=== PATIENT | female | born 1955 | race African-American/Black ===

== ENCOUNTER 2020-05-20 15:43 | Inpatient (IN) | payer MEDICARE ==
[~2020-05-20 15:43] MED LIST: Iopamidol-370 76% 500 ML 1 ML ONE
[2020-05-20 16:10] LABS: #Basophils 0.1 thou/uL (0.0-0.2); #Eosinphils 0.1 thou/uL (0.0-0.7); #Lymphocytes 3.5 thou/uL (1.20-3.40); #Monocytes 0.6 thou/uL (0.11-0.59); #Neutrophils 3.8 thou/uL (1.40-6.50); %Basophils 1.3 % (0.0-1.0); %Lymphocytes 42.9 % (21.0-51.0); %Monocytes 7.9 % (0.0-10.0); %Neutrophils 46.9 % (42.0-75.0); Hemoglobin 16.1 g/dL (12.0-16.0); Mean Corpuscular HGB CONC 33.9 g/dL (32.0-36.0); Mean Corpuscular Hemoglobin 29.7 pg (27.0-31.0); Mean Corpuscular Volume 87.4 fL (78.0-98.0); Mean Platelet Volume 7.4 fL (7.4-10.4); Platelet Count 238 thou/uL (130-400); RBC Distribution Width 13.4 % (11.5-14.5); Red Blood Cell (RBC) Count 5.41 mill/uL (4.20-5.40)
[2020-05-20 16:35] LABS: ALT (SGPT) 11 U/L (8-55); AST (SGOT) 17 U/L (5-34); Alkaline Phosphatase 109 U/L (40-110); Anion Gap 21 mmol/L (10-20); BUN (Urea Nitrogen) 8 mg/dL (9.8-20.1); Bilirubin, Total 0.9 mg/dL (0.2-1.2); Calc. Creatinine Clearance 0 mL/min (70-130); Calcium 9.6 mg/dL (7.8-10.44); Carbon Dioxide 19 mmol/L (23-31); Chloride 100 mmol/L (98-107); Estimated GFR-MDRD 79; Globulin 4.4 g/dL (2.4-3.5); Glucose 200 mg/dL (80-115); Lipase 23 U/L (8-78); Potassium 4.7 mmol/L (3.5-5.1); Protein, Total 8.4 g/dL (6.0-8.3); Sodium 135 mmol/L (136-145)
[2020-05-20 17:12] LABS: Bilirubin Negative (Negative); Blood, Urine Negative (Negative); Calcium Oxalate Crystals 1+ HPF (None Seen); Clarity Turbid (Clear); Glucose, Urine (Dipstick) Normal (Negative); Ketone, Urine 40 mg/dL (Negative); Leukocyte 500 Leu/uL (Negative); Nitrite Negative (Negative); Protein, Urine (Dipstick) 50 mg/dL (Neg-Trace); Specific Gravity, Urine 1.026 (1.002-1.036); Squamous Epithelial 21-50 HPF (0-3); Urobilinogen Normal mg/dL (Less than 2)
[2020-05-20 17:20] LABS: Bacteria/HPF 4+ HPF (None Seen)
[2020-05-20 17:21] LABS: Mucous/LPF 2+ LPF (<2+); Yeast-Hyphae 1+ HPF (None Seen)
[2020-05-20] MEDS ORDERED: cefTRIAXone\\ROCEPHIN 2 GM VIAL ONE (17:51)
--- NOTE | 2020-05-20 18:17 | CT ---
CT CHEST, ABDOMEN AND PELVIS WITH IV CONTRAST: 05/20/20 HISTORY: Chest pain, abdominal pain, progressive onset of dysphagia. GE reflux. COMPARISON: None. FINDINGS: No evidence of mediastinal, hilar, axillary mass or lymphadenopathy seen. Multiple low density lesion s are seen in the thyroid gland. No pleural or pericardial effusions are noted. No pneumothoraces, fo brenda areas of consolidation, or lung masses are identified. There is a peripheral solid 5 mm lung nodu le in the right lower lobe. The liver, spleen, pancreas, adrenal glands and right kidney appear normal. There is a 2 cm cyst in t he inferior pole of the left kidney. No calcified gallstones are seen. There is a 1 cm lymph node in the superior gastrohepatic ligament. There is prominence of the stomach. No free air, free fluid or r etroperitoneal lymphadenopathy seen. The small bowel loops are not abnormally dilated. A normal appea ring appendix is present. The uterus is present. There are vascular calcifications without evidence of aneurysmal dilatation of the thoraco-abdominal aorta. There are degenerative changes in the thoracolumbar spine. No osteolyti c or osteoblastic lesions are seen. IMPRESSION: 1. Indeterminate 5 mm right lower lobe lung nodules. A follow-up CT scan of the chest is recomme nded in six months. 2. 1 cm lymph node in the gastrohepatic ligament. 3. Prominence of the gastric wall. Endoscopy would be helpful. 4. Left renal cyst. 5. Low dense lesions in the thyroid gland should be evaluated with ultrasound. POS: OFF
--- NOTE | 2020-05-20 19:03 | PDOC.HHP ---
Hospitalist HPI - History of Present Illness Dysphagia History of Present Illness: This is a 64-year-old female patient with a history of dysphagia currently being followed by Dr. Sanderson, diabetes mellitus, hyperthyroidism on methimazole, hypertension who presents with progressive dysphagia for liquids than solids, increasing weakness and nausea for the last few days. She notes having had the symptoms for the past several months and had a telemedicine visit with Dr. Sanderson a few days ago. She notes she was going to do an EDG and colonoscopy however her symptoms worsened with increasing nausea and epigastric painleading her to come to the ED for further evaluation. Epigastric pain is burning in nature 5/10 intensity nonradiating. She feels a sensation of food and liquid stuck in her throat however it is worse with solid food. She has noted a 15 pound weight loss over the past 3 months. This she attributes to reduced ability to eat. She denies any diarrhea but however has constipation. She denies any dysuria frequency or hematuria. She notes a history of dyspepsia spanning from her teenage days. Also notes hypothyroidism for which she been on methimazole and initial managed by endoc rinology however now is managed by her PCP At presentation her vitals showed BP 119/80, pulse 117, respiratory rate 20, temperature 97.9 and saturating at 97 on room air. UA showed increased ketones, moderate white blood cells, 4+ bacteria, sodium was 135, bicarb 19, glucose 200, hemoglobin 16.1, no leukocytosis. TSH was 14.5, troponin was 0.01. CT of head chest abdomen pelvis revealed indeterminate 5 mm right lower lobe lung nodule, 1 cm lymph node in the gastrohepatic ligament, prominence of the gastric wall with recommended endoscopy to evaluate. Left renal cyst and low-density lesions in the thyroid gland. In the ED she was given ceftriaxone to cover for UTI and 1 L normal saline. Hospitalist team consulted for admission. Hospitalist ROS - Review of Systems Constitutional: denies: fever, chills, sweats Cardiovascular: denies: chest pain, palpitations, orthopnea, paroxysmal noc. dyspnea Gastrointestinal: reports: nausea, abdominal pain, constipation, hematochezia. denies: vomiting, diarrhea, melena Genitourinary: denies: dysuria, frequency, incontinence Neurological: denies: weakness, numbness, incoordination Hospitalist History - Past Medical History Cardiac: reports: HTN Endocrine: reports: Diabetes, Hyperthyroidism - Past Surgical History Other Surgical History: Cataract surgery bilateral - Family History Family History: reports: diabetes mellitus, hypertension - Social History Smoking Status: Never smoker Alcohol: reports: None Living Situation: With Family Activity level: independent ambulation - Exam General Appearance: awake alert Eye: PERRL, anicteric sclera Heart: RRR, no murmur, no gallops, no rubs, normal peripheral pulses Respiratory: no wheezes, no rales, no ronchi, no tachypnea Gastrointestinal: soft, non-distended, normal bowel sounds, tender to palpation (Epigastric. No rebound tenderness or guarding) Extremities: no cyanosis, no clubbing, no edema Hospitalist Results - Labs Result Diagrams: 05/20/20 16:00 05/21/20 13:17 Lab results: WBC 8.0 thou/uL (4.8-10.8) 05/20/20 16:00 Hgb 16.1 g/dL (12.0-16.0) H 05/20/20 16:00 Hct 47.3 % (36.0-47.0) H 05/20/20 16:00 MCV 87.4 fL (78.0-98.0) 05/20/20 16:00 Plt Count 238 thou/uL (130-400) 05/20/20 16:00 Neutrophils % 46.9 % (42.0-75.0) 05/20/20 16:00 Sodium 135 mmol/L (136-145) L 05/20/20 16:00 Potassium 4.7 mmol/L (3.5-5.1) 05/20/20 16:00 Chloride 100 mmol/L (98-107) 05/20/20 16:00 Carbon Dioxide 19 mmol/L (23-31) L 05/20/20 16:00 BUN 8 mg/dL (9.8-20.1) L 05/20/20 16:00 Creatinine 0.87 mg/dL (0.6-1.1) 05/20/20 16:00 Glucose 200 mg/dL (80-115) H 05/20/20 16:00 Calcium 9.6 mg/dL (7.8-10.44) 05/20/20 16:00 Total Bilirubin 0.9 mg/dL (0.2-1.2) 05/20/20 16:00 AST 17 U/L (5-34) 05/20/20 16:00 ALT 11 U/L (8-55) 05/20/20 16:00 Alkaline Phosphatase 109 U/L (40-110) 05/20/20 16:00 Troponin I 0.016 ng/mL (< 0.028) 05/20/20 16:00 Serum Total Protein 8.4 g/dL (6.0-8.3) H 05/20/20 16:00 Albumin 4.0 g/dL (3.4-4.8) 05/20/20 16:00 Lipase 23 U/L (8-78) 05/20/20 16:00 Urine Ketones 40 mg/dL (Negative) A 05/20/20 16:46 Urine Blood Negative (Negative) 05/20/20 16:46 Urine Nitrite Negative (Negative) 05/20/20 16:46 Ur Leukocyte Esterase 500 Adriana/uL (Negative) A 05/20/20 16:46 Urine RBC 4-6 HPF (0-3) A 05/20/20 16:46 Urine WBC 11-20 HPF (0-3) A 05/20/20 16:46 Ur Squamous Epith Cells 21-50 HPF (0-3) A 05/20/20 16:46 Urine Bacteria 4+ HPF (None Seen) A 05/20/20 16:46 Hospitalist H&P A/P - Plan Plan: This is a 64-year-old female patient with a history of diabetes mellitus, hypothyroidism presenting with progressive dysphagia and epigastric pain and nausea. Dysphagia Unclear etiology of dysphagiano obvious esophageal lesion noted on CT scan. May need further evaluation IV fluids for now Continue on clear liquid diet GI evaluation in a.m. Dyspepsia Prominent gastric wall noted on CT Would require upper GI endoscopy Consult GI in a.m. Hyperthyroidism On methimazole TSH elevated at 14.5 Free T4 0.78 within normal limits We will hold methimazole and repeat TSH in a.m. Endocrine follow-up on discharge. Polycythemia Hemoglobin elevated at 16.1 Likely secondary to dehydration from low intake. Rehydrate Repeat CBC in a.m. Diabetes mellitus Glucose elevated at 200 Ketones noted in urine with anion gap at 16 Recheck beta hydroxybutyrate Hydrate Anion gap metabolic acidosis Anion gap 16 Glucose mildly elevated Possible mild DKA She received a bolus of Repeat BMP Follow-up on beta hydroxybutyrate acid. Possible UTI Suggested on UA however squamous cells increased to 21-50 Repeat UA She had a dose of ceftriaxone will hold for now Continue if repeat UA suggestive of UTI. Left renal cyst Likely benign Consider urology consult if necessary. -Cataracts has had surgery on both eyes VT prophylaxisLovenox CODE STATUSfull
[2020-05-20] MEDS ORDERED: Ondansetron ODT 4 MG TAB PO PRN (20:31)
[2020-05-20] MEDS ORDERED: Ondansetron PF 4 MG/2 ML Vial IVP PRN (20:31)
[2020-05-20 21:18] LABS: Anion Gap 19 mmol/L (10-20); BUN (Urea Nitrogen) 6 mg/dL (9.8-20.1); Calc. Creatinine Clearance 0 mL/min (70-130); Calcium 8.8 mg/dL (7.8-10.44); Carbon Dioxide 19 mmol/L (23-31); Chloride 103 mmol/L (98-107); Estimated GFR-MDRD 88; Glucose 187 mg/dL (80-115); Potassium 4.1 mmol/L (3.5-5.1); Sodium 137 mmol/L (136-145)
[2020-05-20 21:32] VITALS: BMI 28.0
--- NOTE | 2020-05-20 21:59 | PDOC.FMACP ---
Advance Care Planning - Note Summary: Advanced Care Planning was discussed. The diagnosis, prognosis and goals of care were discussed. Surrogate decision maker is . They do not have any signed document. CODE STATUS is full code.
[2020-05-20] MEDS: Sodium Chloride 0.9% 1,000 ML IV SCH (22:21)
[2020-05-21] MEDS ORDERED: Dextrose 5% in Water 1,000 ML IV PRN (04:40)
[2020-05-21] MEDS ORDERED: HumaLOG 300 UNITS/3 ML VIAL SC PRN (04:40)
[2020-05-21] MEDS ORDERED: Dextrose 50% Abboject 50 ML SYRINGE SLOW IVP PRN (04:40)
[2020-05-21] MEDS: Sodium Chloride 0.9% 1,000 ML IV SCH ×3 (05:54→22:33)
[2020-05-21 06:32] LABS: ALT (SGPT) 10 U/L (8-55); AST (SGOT) 11 U/L (5-34); Albumin 3.3 g/dL (3.4-4.8); Alkaline Phosphatase 88 U/L (40-110); Anion Gap 17 mmol/L (10-20); BUN (Urea Nitrogen) 5 mg/dL (9.8-20.1); Bilirubin, Total 0.6 mg/dL (0.2-1.2); Calc. Creatinine Clearance 92 mL/min (70-130); Calcium 8.6 mg/dL (7.8-10.44); Carbon Dioxide 18 mmol/L (23-31); Chloride 104 mmol/L (98-107); Estimated GFR-MDRD Greater than 90; Globulin 3.6 g/dL (2.4-3.5); Glucose 195 mg/dL (80-115); Potassium 4.3 mmol/L (3.5-5.1); Protein, Total 6.9 g/dL (6.0-8.3); Sodium 135 mmol/L (136-145)
[2020-05-21] MEDS ORDERED: Metoclopramide HCl 10 MG/2 ML VIAL IVP PRN (08:49)
[2020-05-21] MEDS ORDERED: Sodium Chloride 0.9% 1,000 ML IV SCH (09:15)
[2020-05-21 09:19] LABS: Hemoglobin A1c 12.5 % (4.0-6.0)
[2020-05-21] MEDS ORDERED: Insulin Glargine 20 UNITS in Pre-Filled Syringe 1 EACH SC SCH (09:30)
[2020-05-21 10:00] LABS: Anion Gap 17 mmol/L (10-20); BUN (Urea Nitrogen) 4 mg/dL (9.8-20.1); Calc. Creatinine Clearance 91 mL/min (70-130); Calcium 8.7 mg/dL (7.8-10.44); Carbon Dioxide 20 mmol/L (23-31); Chloride 102 mmol/L (98-107); Estimated GFR-MDRD Greater than 90; Glucose 190 mg/dL (80-115); Potassium 4.1 mmol/L (3.5-5.1); Sodium 135 mmol/L (136-145)
[2020-05-21] MEDS: Pantoprazole 40 MG VIAL IVP SCH (10:10)
[2020-05-21] MEDS: Enoxaparin Sodium 40 MG/0.4 ML SYRINGE SC SCH (10:10)
[2020-05-21] MEDS ORDERED: Acetaminophen 325 MG TAB PO PRN (10:53)
--- NOTE | 2020-05-21 11:04 | CON ---
DATE OF CONSULTATION: 05/21/2020 REASON FOR CONSULT: "Dysphagia" and weight loss. HISTORY OF PRESENT ILLNESS: Ms. Aguirre is a 64-year-old female, who sees enrique Schneider at [facility] in the [facility] and . She has issues with diabetes, which has been poorly controlled. She had a hemoglobin A1c over 14 in April and in February and has a history of thyroid disease, being treated as hyperthyroidism in the past. She saw Dr. Sanderson on the May 15 for early satiety and weight loss. Her symptoms were mainly feeling that she would get full early. She states that food does not really hang up when she swallows, it just tends to sit at the top of her stomach or bottom of her chest. She is afraid to eat because she is just afraid she is going to get too full. She denies any pain with this. She denies any pain with swallowing or bolus obstruction or filling of the food that is hanging in her throat or chest. She has had no vomiting. She does report that her diabetes is poorly controlled and Dr. Smith has been working on this. She is due to have repeat hemoglobin A1c later this month. She is also having issues with constipation. She has tried some Metamucil, but that would make her feel full as well. She has had no bleeding. Her stools are brown or [place] color. She has had no pain with defecation. She denies any overt abdominal pain. She does get some burning in her lower chest and epigastric region at times, which she has been taking Gas-X. She reports because of the fear of eating, she has lost about 10 or 15 pounds over the past couple of months. She ultimately came to the emergency room for this. She was scheduled for upper and lower endoscopy in early June, but felt things were getting worse. A CAT scan in the emergency room without any oral contrast showed some indeterminate 5 mm lower lung nodules, 1 cm lymph node in the gastrohepatic ligament, prominence of the gastric wall within the thyroid gland. Her labs were notable for normal comprehensive metabolic profile except for a serum bicarb of 18 with anion gap of 17, BUN and creatinine are 5 and 0.75 and glucose of 159. Her protein was 6.9 and albumin 3.3. Liver function tests are normal. Her TSH on 05/20 was 14 and free T4 was 0.7. Troponin was negative. Her last hemoglobin A1c was 14 on 03/03/2020. Urinalysis showed leukocyte esterase as well as some white blood cells and squames. Beta-hydroxybutyrate was 3.2. PAST MEDICAL HISTORY: Hypertension, diabetes, and reported hyperthyroidism, for which she is on methimazole. PAST SURGICAL HISTORY: Cataract surgery. REVIEW OF SYSTEMS: GENERAL: Negative for fever, chills, sweats, or cough. CARDIOVASCULAR: Notable for burning in her lower chest and epigastrium at times. No chest pain with exertion, palpitations, orthopnea, or dyspnea. GI: Negative for melena, hematochezia, or hematemesis. Does get burning in her lower chest at times in the epigastric area. She cannot take NSAIDs because of this. : Negative for dysuria, frequency, or urgency. NEUROLOGIC: Negative for focal weakness or TIA like symptoms in the past. SKIN: Negative for rashes. EXTREMITIES: She has had some right hip pain. She notes this has been more noticeable since lying down. FAMILY HISTORY: Diabetes and hypertension. No cardiac disease or malignancies. No colon cancer or liver disease. SOCIAL HISTORY: No smoking. No alcohol. Lives with her . She has surgery scheduled for Friday at this hospital. PHYSICAL EXAMINATION: VITAL SIGNS: Pulse is 107, temperature 97, and blood pressure 134/68. GENERAL: She is resting comfortably in bed with her at the bedside. She is alert and oriented to person, place, and time. HEENT: Cranial nerves are intact. Oropharynx, no lesions. NECK: Thyroid is slightly enlarged, but no mass or tenderness are noted. There is no supraclavicular adenopathy. LUNGS: Clear. HEART: Regular rate and rhythm without clicks, rubs, or murmurs. ABDOMEN: Soft and nontender with no palpable hepatosplenomegaly, distention, or shifting dullness. There is no evidence of hernias. Bowel sounds are positive. EXTREMITIES: No clubbing, cyanosis, or edema. Pulses are intact in both upper and lower distal extremities. NEUROLOGIC: She has normal cranial nerves and no focal deficits sensation in upper and lower extremities. SKIN: Without rashes or lesions. LABORATORY DATA: As per HPI. CT scan as per HPI. Images reviewed. There is no oral contrast and it is really difficult to say if there is any stomach wall thickening, there is what appears to be a hiatal hernia though. ASSESSMENT: 1. Early satiety with weight loss. She does not have true dysphagia. Differential diagnosis would include gastric lesions such as linitis plastica, although the stomach does not look that thick. It may be related to gastroparesis. She had a hemoglobin A1c over 14 back in February, although apparently there are some medication changes. She has been working with her PCP on this and was due for followup soon. She seems to be hypothyroid and this may be contributing to delayed gastric emptying. Apparently, she was treated for hyperthyroidism in the past on methimazole, but her TSH is now over 14. 2. Hypothyroidism. 3. Diabetes, poorly controlled. 4. Hypertension, controlled. 5. Constipation, chronic with no signs of bleeding. RECOMMENDATIONS: 1. Liquid diet today, upper and lower endoscopy tomorrow. Reglan p.r.n. for nausea with bowel prep. 2. We will order hemoglobin A1c. 3. We will defer to Internal Medicine treatment of her hypothyroidism and diabetes and hypertension. 4. We will start a PPI as well. Job ID: [id number]
[2020-05-21] MEDS: Acetaminophen/Codeine 30-300mg Tablet PO PRN ×2 (12:22→22:29)
[2020-05-21] MEDS: GoLYTELY 4,000 ml Bottle PO SCH ×2 (12:23→18:32)
[2020-05-21 13:48] LABS: Anion Gap 18 mmol/L (10-20); BUN (Urea Nitrogen) Less than 4 mg/dL (9.8-20.1); Calc. Creatinine Clearance 93 mL/min (70-130); Calcium 8.8 mg/dL (7.8-10.44); Carbon Dioxide 17 mmol/L (23-31); Chloride 104 mmol/L (98-107); Estimated GFR-MDRD Greater than 90; Glucose 176 mg/dL (80-115); Potassium 3.9 mmol/L (3.5-5.1); Sodium 135 mmol/L (136-145)
[2020-05-21 18:37] LABS: Anion Gap 13 mmol/L (10-20); BUN (Urea Nitrogen) Less than 4 mg/dL (9.8-20.1); Calc. Creatinine Clearance 96 mL/min (70-130); Calcium 8.7 mg/dL (7.8-10.44); Carbon Dioxide 22 mmol/L (23-31); Chloride 106 mmol/L (98-107); Estimated GFR-MDRD Greater than 90; Glucose 155 mg/dL (80-115); Potassium 3.8 mmol/L (3.5-5.1); Sodium 137 mmol/L (136-145)
[2020-05-21] MEDS: Methimazole 10 MG TAB PO SCH (21:25)
[2020-05-21 21:40] LABS: Anion Gap 15 mmol/L (10-20); BUN (Urea Nitrogen) Less than 4 mg/dL (9.8-20.1); Calc. Creatinine Clearance 97 mL/min (70-130); Calcium 8.5 mg/dL (7.8-10.44); Carbon Dioxide 21 mmol/L (23-31); Chloride 106 mmol/L (98-107); Estimated GFR-MDRD Greater than 90; Glucose 134 mg/dL (80-115); Potassium 3.7 mmol/L (3.5-5.1); Sodium 138 mmol/L (136-145)
--- NOTE | 2020-05-21 22:01 | PDOC.HOSPP ---
- Subjective Encounter Date: 05/21/20 Encounter Time: 09:00 Subjective: Patient was seen and examined in bed. She feels generally better today. She had no complaints. No significant events overnight - Objective Vital Signs & Weight: Vital Signs (12 hours) Temp Pulse Resp BP Pulse Ox 05/21/20 19:05 97.6 F 89 16 143/75 H 99 05/21/20 16:00 99.0 F 96 16 136/76 99 05/21/20 12:38 97.8 F 93 16 148/75 H 100 Weight Admit Weight 174 lb 3 oz Weight 174 lb 3 oz I&O: 05/20/20 05/21/20 05/22/20 06:59 06:59 06:59 Intake Total 1140 2740 Balance 1140 2740 Result Diagrams: 05/20/20 16:00 05/21/20 21:10 Additional Labs: Accuchecks 05/21/20 05/21/20 05/21/20 20:08 16:04 12:07 POC Glucose 135 H 174 H 179 H Hospitalist ROS - Medication Medications: Active Medications Generic Name Dose Route Start Last Admin Trade Name Freq PRN Reason Stop Dose Admin Acetaminophen/Codeine Phosphate 1 tab 05/21/20 10:53 05/21/20 12:22 Acetaminophen/Codeine 30-300mg Tablet PO 1 tab Q4H PRN Administration Moderate Pain (4-6) Enoxaparin Sodium 40 mg 05/21/20 09:00 05/21/20 10:10 Enoxaparin Sodium 40 Mg/0.4 Ml Syringe SC 40 mg 0900 RENETTA Administration Sodium Chloride 1,000 mls @ 100 mls/hr 05/20/20 20:30 05/21/20 16:16 Normal Saline 0.9% IV Not Given .Q10H RENETTA Methimazole 10 mg 05/21/20 21:00 05/21/20 21:25 Methimazole 10 Mg Tab PO 10 mg TID RENETTA Administration Pantoprazole Sodium 40 mg 05/21/20 09:00 05/21/20 10:10 Pantoprazole 40 Mg Vial IVP 40 mg DAILY RENETTA Administration Polyethylene Glycol/Electrolytes 2,000 ml 05/21/20 12:00 05/21/20 18:32 Golytely 4,000 Ml Bottle PO 05/21/20 23:59 2,000 ml 1200,1900 RENETTA Administration - Exam General Appearance: awake alert Eye: PERRL, anicteric sclera Heart: RRR, no murmur, no gallops, normal peripheral pulses Respiratory: no wheezes, no rales, no ronchi, no tachypnea Gastrointestinal: soft, non-tender, non-distended, normal bowel sounds Extremities: no cyanosis, no clubbing, no edema Neurological: cranial nerve grossly intact, no weakness Hosp A/P - Plan 64-year-old female with a history of uncontrolled diabetes mellitus, hypothyroidism admitted on account of dysphagia, abdominal pain. Dysphagia Drinking more liquids today. Plan for EGD tomorrow GI follow Dyspepsia Prominent gastric wall noted on CT Would require upper GI endoscopy Consult GI in a.m. Hyperthyroidism On methimazole TSH elevated at 14.5 Free T4 0.78 within normal limits Restart methimazole today We will need reevaluation on discharge Polycythemia Hemoglobin elevated at 16.1 Likely secondary to dehydration from low intake. Rehydrate Repeat CBC in a.m. Diabetes mellitus Started on 20 units glargine Blood sugars generally controlled Continue with blood sugar monitoring Anion gap metabolic acidosis Resolved Continue monitoring. Possible UTI Repeat UA in a.m. Left renal cyst Likely benign Consider urology consult if necessary. -Cataracts has had surgery on both eyes VT prophylaxisLovenox CODE STATUSfull Addendum: Mistakingly started vancomycin on patient. Vancomycin was discontinued about [facility] Patient informed. She accepted my apology.
[2020-05-22] MEDS ORDERED: Cefepime 1 GM in Sodium Chloride 0.9% 100 ML IVPB SCH (04:00)
[2020-05-22] MEDS ORDERED: Vancomycin HCl 1.25 GM in Sodium Chloride 0.9% 250 ML 250 ML IVPB SCH (06:00)
[2020-05-22 07:02] LABS: SARS-CoV-2 NAA Rapid Test Not Detected (NotDetected)
[2020-05-22] MEDS: Methimazole 10 MG TAB PO SCH ×3 (08:26→20:36)
[2020-05-22] MEDS: Pantoprazole 40 MG VIAL IVP SCH (08:26)
[2020-05-22] MEDS: Insulin Glargine 20 UNITS in Pre-Filled Syringe 1 EACH SC SCH (08:30)
[2020-05-22] MEDS: Enoxaparin Sodium 40 MG/0.4 ML SYRINGE SC SCH (08:30)
[2020-05-22 08:55] LABS: Bacteria/HPF 1+ HPF (None Seen); Bilirubin Negative (Negative); Blood, Urine Negative (Negative); Clarity Clear (Clear); Glucose, Urine (Dipstick) Normal (Negative); Ketone, Urine 20 mg/dL (Negative); Leukocyte 250 Leu/uL (Negative); Nitrite Negative (Negative); Protein, Urine (Dipstick) Negative (Neg-Trace); RBC/HPF 0-3 HPF (0-3); Squamous Epithelial 0-3 HPF (0-3); Urobilinogen Normal mg/dL (Less than 2); WBC/HPF 0-3 HPF (0-3)
[2020-05-22 08:56] LABS: Urine Culture Reflex Yes Yes
[2020-05-22] MEDS ORDERED: Ondansetron PF 4 MG/2 ML Vial ONE (11:48)
[2020-05-22] MEDS ORDERED: PROPOFOL 200 MG/20 ML VIAL ONE (11:48)
[2020-05-22] MEDS: Acetaminophen/Codeine 30-300mg Tablet PO PRN (12:39)
[2020-05-22] MEDS: Sodium Chloride 0.9% 1,000 ML IV SCH ×2 (12:40→23:00)
--- NOTE | 2020-05-22 12:52 | OP ---
DATE OF PROCEDURE: 05/22/2020 PROCEDURES PERFORMED: 1. Esophagogastroduodenoscopy with biopsy. 2. Colonoscopy with polypectomy. INDICATIONS FOR PROCEDURE: Dysphagia, early satiety, midepigastric pain/discomfort, unexplained weight loss. DESCRIPTION OF PROCEDURE: After the risks and benefits of the procedures were explained to the patient including risks of bleeding, infection, perforation, reactions to anesthesia, aspiration, and/or pain, informed consent was obtained. The patient was then taken to the endoscopy suite where she was maneuvered into the left lateral decubitus position followed by introduction of deep sedation via propofol and anesthesia support. Once adequate sedation was achieved, the standard gastroscope was introduced into the mouth with intubation of the esophagus, stomach, and the proximal small intestines with the findings listed below. The patient tolerated this portion of the procedure well with no immediate perioperative complications. On conclusion of this portion of the procedure, all equipment was removed and the bed was rotated 180 degrees in anticipation of the colonoscopy. A digital rectal examination was then performed followed by introduction of the standard colonoscope, which was then advanced to the terminal ileum without difficulty with adequate visualization of the colonic mucosa achieved. The quality of the prep was good to excellent. The patient tolerated the procedure well with no immediate perioperative complications. On conclusion of the procedure, all equipment was removed from the patient and she was transferred to PACU in satisfactory condition. EGD FINDINGS: Esophagus: Small whitish plaques were seen in the upper, mid, and distal esophagus, measuring approximately 1 to 2 mm in diameter, but without any ulcerations or erosions seen associated with them. Given the increased risk of Shirley esophagitis, biopsies were taken for confirmation of this finding. Otherwise, there was no evidence of erosions, ulcerations, mass lesions, or active/recent bleeding. Stomach: Normal-appearing mucosa was seen in the gastric cardia, fundus, body, greater curvature, antrum, and incisura. There was no evidence of erosions, ulcerations, mass lesions, or active/recent bleeding. Random gastric biopsies were taken throughout the stomach for evaluation of a possible underlying infiltrative process versus H pylori infection given the prominence of the stomach seen on recent CT. Duodenum: Normal-appearing mucosa was seen in the both the duodenal bulb and second portion of the duodenum. There was no evidence of erosions, ulcerations, mass lesions, or active/recent bleeding. IMPRESSION: 1. Small white plaques throughout the esophagus, consistent with Shirley esophagitis. 2. Otherwise normal upper endoscopy. 3. No etiology for the patient's unexplained weight loss was seen during this examination. COLONOSCOPY FINDINGS: Digital rectal exam: Normal findings were seen on external examination with mildly increased pressure of the anal sphincter. Colon findings: Normal-appearing mucosa was seen within the terminal ileum as well as at the appendiceal orifice and ileocecal valve. Normal-appearing mucosa was also seen within the cecum; however, a 1-cm semi-pedunculated polyp was seen in the proximal ascending colon and completely removed with snare cautery polypectomy. It was retrieved and placed in a specimen jar for further evaluation. Normal-appearing mucosa was then seen in the distal ascending colon, transverse colon, descending colon, sigmoid colon, and rectum. Normal findings were seen on rectal retroflexion. IMPRESSION: 1. A 1-cm ascending colon polyp status post snare cautery polypectomy. 2. Otherwise normal colonoscopy. 3. No etiology for the patient's early satiety, epigastric discomfort, or unexplained weight loss was seen during this examination. RECOMMENDATIONS: 1. Would follow up on the biopsy results for evaluation of possible H pylori versus infiltrative process in the stomach and confirmation of Shirley esophagitis. 2. Would start the patient on fluconazole 200 mg daily as part of treatment for Shirley esophagitis. 3. Would follow up on the colonoscopy polypectomy results with repeat colonoscopy depending on pathology report. Based on the findings today, I would recommend a repeat colonoscopy in 3 years given the size and morphology of the polyp removed. 4. Would attempt to optimize the patient's nutrition by starting her on a liquid diet and advancing as tolerated. 5. Would obtain a gastric emptying study on this patient for other etiologies contributing to her nausea/vomiting, early satiety including gastroparesis (especially with severely uncontrolled diabetes). 6. Strongly recommend tighter glucose control for management of her uncontrolled diabetes. We will continue to follow. Please call with any questions. Job ID: [id number]
--- NOTE | 2020-05-22 23:06 | PDOC.HOSPP ---
- Subjective Encounter Date: 05/22/20 Encounter Time: 20:00 Subjective: Patient was seen and examined in bed. She had completed upper and lower endoscopy and and was feeling all right. She denied any chest pain shortness of breath or abdominal pain. She is due for gastric emptying studies tomorrow - Objective Vital Signs & Weight: Vital Signs (12 hours) Temp Pulse Resp BP BP Pulse Ox 05/22/20 19:11 97.6 F 92 16 117/60 98 05/22/20 11:50 98.5 F 89 18 140/70 100 Weight Admit Weight 174 lb 3 oz Weight 174 lb 3 oz I&O: 05/21/20 05/22/20 05/23/20 06:59 06:59 06:59 Intake Total 1140 7940 1180 Balance 1140 7940 1180 Result Diagrams: 05/20/20 16:00 05/21/20 21:10 Additional Labs: Accuchecks 05/22/20 05/22/20 05/22/20 20:19 16:23 05:43 POC Glucose 141 H 167 H 147 H Hospitalist ROS - Medication Medications: Active Medications Generic Name Dose Route Start Last Admin Trade Name Freq PRN Reason Stop Dose Admin Acetaminophen/Codeine Phosphate 1 tab 05/21/20 10:53 05/22/20 12:39 Acetaminophen/Codeine 30-300mg Tablet PO 1 tab Q4H PRN Administration Moderate Pain (4-6) Enoxaparin Sodium 40 mg 05/21/20 09:00 05/22/20 08:30 Enoxaparin Sodium 40 Mg/0.4 Ml Syringe SC Not Given 0900 [facility] Sodium Chloride 1,000 mls @ 100 mls/hr 05/20/20 20:30 05/22/20 12:40 Normal Saline 0.9% IV 1,000 mls .Q10H RENETTA Administration Insulin Glargine 20 units/ 0.2 mls @ 0 mls/hr 05/22/20 09:00 05/22/20 08:30 Miscellaneous Medication SC Not Given QAM RENETTA Insulin Human Lispro 0 units 05/21/20 04:40 05/22/20 16:47 Humalog 300 Units/3 Ml Vial SC 2 unit .MILD SLIDING SCALE PRN Administration Mild Correctional Scale Methimazole 10 mg 05/21/20 21:00 05/22/20 20:36 Methimazole 10 Mg Tab PO 10 mg TID RENETTA Administration Pantoprazole Sodium 40 mg 05/21/20 09:00 05/22/20 08:26 Pantoprazole 40 Mg Vial IVP 40 mg DAILY RENETTA Administration - Exam General Appearance: awake alert Heart: RRR, no murmur, no gallops Respiratory: no wheezes, no rales, no ronchi Gastrointestinal: soft, non-tender, non-distended Extremities: no cyanosis, no clubbing, no edema Psychiatric: normal affect, normal behavior, A&O x 3 Hosp A/P - Plan 64-year-old female with a history of uncontrolled diabetes mellitus, hypothyroidism admitted on account of dysphagia, abdominal pain. She had upper and lower GI endoscopy today successfully. Plans for gastric emptying study tomorrow. Dysphagia Status post upper and lower GI endoscopy Biopsies takenwe will follow For gastric emptying study tomorrow Dyspepsia Prominent gastric wall noted on CT Would require upper GI endoscopy Consult GI in a.m. Hyperthyroidism On methimazole TSH elevated at 14.5 Free T4 0.78 within normal limits Restart methimazole today We will need reevaluation on discharge Polycythemia Hemoglobin elevated at 16.1 Likely secondary to dehydration from low intake. Rehydrate Repeat CBC in a.m. Diabetes mellitus Started on 20 units glargine Blood sugars generally controlled Continue with blood sugar monitoring Anion gap metabolic acidosis Resolved Continue monitoring. Possible UTI UA indicates no UTI Left renal cyst Likely benign Consider urology consult if necessary. -Cataracts has had surgery on both eyes VT prophylaxisLovenox CODE STATUSfull
[2020-05-23 03:39] LABS: #Basophils 0.1 thou/uL (0.0-0.2); #Eosinphils 0.1 thou/uL (0.0-0.7); #Monocytes 0.6 thou/uL (0.11-0.59); #Neutrophils 4.4 thou/uL (1.40-6.50); %Basophils 1.1 % (0.0-1.0); %Eosinophils 0.7 % (0.0-10.0); %Lymphocytes 27.7 % (21.0-51.0); %Monocytes 8.8 % (0.0-10.0); %Neutrophils 61.7 % (42.0-75.0); Hemoglobin 13.3 g/dL (12.0-16.0); Mean Corpuscular HGB CONC 32.5 g/dL (32.0-36.0); Mean Corpuscular Hemoglobin 28.9 pg (27.0-31.0); Mean Corpuscular Volume 88.9 fL (78.0-98.0); Mean Platelet Volume 7.2 fL (7.4-10.4); Platelet Count 205 thou/uL (130-400); RBC Distribution Width 13.4 % (11.5-14.5); Red Blood Cell (RBC) Count 4.59 mill/uL (4.20-5.40); White Blood Cell (WBC) Count 7.2 thou/uL (4.8-10.8)
[2020-05-23 04:07] LABS: Anion Gap 14 mmol/L (10-20); BUN (Urea Nitrogen) Less than 4 mg/dL (9.8-20.1); Calc. Creatinine Clearance 88 mL/min (70-130); Calcium 8.7 mg/dL (7.8-10.44); Carbon Dioxide 23 mmol/L (23-31); Chloride 104 mmol/L (98-107); Estimated GFR-MDRD 89; Glucose 232 mg/dL (80-115); Potassium 3.5 mmol/L (3.5-5.1); Sodium 137 mmol/L (136-145)
--- NOTE | 2020-05-23 08:18 | PDOC.DS.DS ---
Provider - Provider Date of Admission: 05/20/20 19:11 Date of Discharge: 05/23/20 Admitting Provider: Dylan Haynes MD Primary Care Physician: Mara Smith Course - Hospital Course Hospital Course: This is an 82-year-old female patient with a history of diabetes mellitus who presented with progressive dysphagia and abdominal pain for several weeks. She was admitted and evaluated by gastroenterology. She had bowel preparation and sent for upper and lower GI endoscopy after which she had a gastric emptying study. No significant abnormalities were seen. Colonic polyp and upper GI gastric sample taken for pathology On upper GI endoscopy was noted she had either esophagitis for which she was added on fluconazole. After all the procedures she was stable and feeling generally good. She was evaluated and discharged Resuscitation Status: 05/20/20 20:31 Resuscitation Status Routine Resuscitation Status: FULL: Full Resuscitation - Labs Lab Results: 05/23/20 03:31 05/23/20 03:31 Abnormal Lab Results - Last 48 hrs 05/21/20 05:33: Hemoglobin A1c 12.5 H 05/21/20 09:31: Sodium 135 L, Carbon Dioxide 20 L, BUN 4 L 05/21/20 13:17: Sodium 135 L, Carbon Dioxide 17 L, BUN Less than 4 L 05/21/20 18:12: Carbon Dioxide 22 L, BUN Less than 4 L 05/21/20 21:10: Carbon Dioxide 21 L, BUN Less than 4 L 05/22/20 08:32: Urine Ketones 20 A, Ur Leukocyte Esterase 250 A, Urine Bacteria 1+ A, Hyaline Casts 4-6 A, Urine Culture Reflexed Yes A 05/23/20 03:31: MPV 7.2 L, Basophils % 1.1 H, Monocytes # 0.6 H 05/23/20 03:31: BUN Less than 4 L - Physical Exam Vitals: Weight Admit Weight 174 lb 3 oz Weight 174 lb 3 oz Physical Exam: The patient was seen and examined on the day of discharge. Problem - Discharge Plan Assessment: Dysphagia Likely secondary to esophageal candidiasis We will complete course of fluconazole To follow-up with GI/PCP Hyperthyroidism -revierw methimazole doses due to elevated TSH and low normal T4 by PCP Recommend endocrine referral by PCP Diabetes mellitus She will continue on home dose of insulin Plan - Discharge Medications Prescriptions: Fluconazole 100 mg PO DAILY #20 tablet Home Medications: Medication Instructions Recorded Confirmed Type Atorvastatin Calcium [Lipitor] 40 mg PO QAM 05/20/20 05/20/20 History Insulin Detemir [Levemir] 25 unit SQ QAM 05/20/20 05/20/20 History Lisinopril 2.5 mg PO DAILY 05/20/20 05/20/20 History Methimazole 10 mg PO TID 05/20/20 05/20/20 History Metoprolol Tartrate 50 mg PO BID 05/20/20 05/20/20 History Polyethylene Glycol 3350 [Miralax] 17 gm PO QAM 05/20/20 05/20/20 History Prednisolone Acetate [Pred Forte 1 drop EA EYE BID 05/20/20 05/20/20 History 1% Ophth Soln] metFORMIN [Glucophage] 500 mg PO BID 05/20/20 05/20/20 History Fluconazole 100 mg PO DAILY #20 tablet 05/23/20 Rx Allergies: No Known Allergies Allergy (Verified 05/20/20 21:45) - Discharge Instructions Discharge Instructions:: Notify your doctor if you experience any: temperature greater than 100.4F -nausea/vomiting -shortness of breath or chest pain that is unrelieved with rest -difficulty swallowing -urine that is dark, bloody, cloudy, or foul smelling -questions or concerns that you may have - Follow up Plan Referrals: Rich Sanderson MD [Active] - 2-3 Weeks (Call after discharge to schedule follow-up appointment ) Mara Smith MD [Primary Care Provider] - 7 Days (Call after discharge to schedule follow-up appointment ) Disposition: HOME Quality - Care Measures CORE MEASURES:: N/A
[2020-05-23] MEDS ORDERED: Fluconazole 100 MG TAB PO SCH (09:00)
[2020-05-23 09:13] VITALS: BP 149/74; TEMP 98.5
[2020-05-23] MEDS: Insulin Glargine 20 UNITS in Pre-Filled Syringe 1 EACH SC SCH (09:58)
[2020-05-23] MEDS: Enoxaparin Sodium 40 MG/0.4 ML SYRINGE SC SCH (09:58)
[2020-05-23] MEDS: Methimazole 10 MG TAB PO SCH ×2 (09:59→13:56)
[2020-05-23] MEDS: Pantoprazole 40 MG VIAL IVP SCH (09:59)
[2020-05-23] MEDS: Acetaminophen/Codeine 30-300mg Tablet PO PRN (14:08)
--- NOTE | 2020-05-23 14:22 | PRG ---
DATE OF SERVICE: 05/23/2020 SUBJECTIVE: Ms. Aguirre is feeling a bit better today. There is some minimal abdominal discomfort. No nausea or vomiting. She just got back from a gastric emptying scan, which appears to be normal. OBJECTIVE: VITAL SIGNS: Temperature 98.5, pulse 80, blood pressure 149/74, 94% oxygen saturation on room air. GENERAL: No acute distress, lying in bed comfortably. HEART: Regular rate and rhythm. LUNGS: Clear to auscultation bilaterally. ABDOMEN: Soft, nontender to palpation. EXTREMITIES: No peripheral edema. LABORATORY STUDIES: WBC 7.2, hemoglobin 13.3, platelets 205. Sodium 137, potassium 3.5, BUN less than 4, creatinine 0.78, glucose 170. IMAGING STUDIES: Gastric emptying scan done earlier today showed gastric emptying half time of only 38 minutes. There was 64% emptying at 1 hour and 87% emptying at 2 hours ASSESSMENT/PLAN: 1. Shirley esophagitis. This was demonstrated on esophagogastroduodenoscopy yesterday. Biopsies to confirm are pending. Agree with Dr. Chou's recommendations to go ahead and start oral fluconazole, give 200 mg on day 1, then 100 mg daily for 21 days of therapy. Biopsy results will be followed up in the outpatient setting. 2. Early satiety. Gastric emptying scan appears to be within normal limits. 3. Poorly controlled diabetes. 4. Colon polyp. She had a 1 cm colon polyp removed. Pathology will be followed up in the outpatient setting. The patient can advance her diet, back to a diabetic diet. She is doing well today. No barriers to hospital discharge from a GI perspective. She can follow up in the GI Clinic with Dr. Sanderson or his physician title assistant. Job ID: [id number]
--- NOTE | 2020-05-23 14:28 | NM ---
RADIONUCLIDE GASTRIC EMPTYING SCAN: Date: 05/23/2020 HISTORY: Nausea, vomiting. Early satiety. Uncontrolled diabetes mellitus. RADIOPHARMACEUTICAL: 2.2 mCi technetium-99m sulfur colloid administered orally. FINDINGS: There is 64% emptying of ingested gastric contents at 1 hour, 87% emptying at 2 hours, 93% emptying a t 3 hours, and 97% emptying at 4 hours. The calculated gastric emptying halftime measures 38 minutes. IMPRESSION: Normal gastric emptying. POS: AH
--- NOTE | 2020-05-23 16:44 | PQF ---
CLINICAL DOCUMENTATION CLARIFICATION FORM: Dear Dr. DANIEL TAVAREZ Date: 05-23-20 Please exercise your independent, professional judgment in responding to the clarification form. Clinical indicators are provided on the bottom of this form for your review. Please check appropriate box(es) to clarify if the following diagnosis has been ruled in our ruled out: DKA [ ] Ruled in diagnosis [ ] Continue to treat [ x] Resolved [ ] Ruled out diagnosis [ ] Other diagnosis [ ] Unable to determine In addition, please specify: Present on Admission (POA): [x ] Yes [ ] No [ ] Unable to determine For continuity of documentation, please document condition throughout progress notes and discharge summary. Thank You. To be completed by CDI/Coding staff for physician review: CLINICAL INDICATORS - SIGNS / SYMPTOMS / LABS / RESULTS AND LOCATION IN MR: H&P 05-20-20: ANION GAP METABOLIC ACIDOSIS, ANION GAP 16, GLUCOSE MILDLY ELEVATED, KETONES NOTED IN URINE, POSSIBLE MILD DKA, SHE RECEIVED A BOLUS OF , REPEAT BMP, F/U ON BETA HYDROXYBUTYRATE ACID HEMOGLOBIN AIC: 12.5% GLUCOSE: 05-20-20: 200, 187 05-21-20: 195, 190, 176, 155 RISK FACTORS / RESULTS AND LOCATION IN MR: H&P 05-20-20: HX DIABETES MELLITUS, HYPOTHYROIDISM, HTN, IN WITH PROGRESSIVE DYSPHAGIA TREATMENTS / RESULTS AND LOCATION IN MR: H&P 05-20-20: SHE RECEIVED A BOLUS OF , REPEAT BMP, F/U ON BETA HYDROXYBUTYRATE ACID MAR: 05-22-20: LANTUS SC Q AM, SLIDING SCALE HUMALOG CDS Signature: Roslyn Briceno Phone #: [phone] Date: 05-20-20 This is a permanent part of the Medical Record [facility]
== END 2020-05-23 17:25 | disposition home or self-care (01) | DRG 368 ==
LOC: ERS 15:43 → ONC 19:11
PROVIDERS: ADMIT Student in an Organized Health Care Education/Training Program; ATTEND Student in an Organized Health Care Education/Training Program
PROC: 0DB58ZX Excision of Esophagus, Via Natural or Artificial Opening Endoscopic, Diagnostic (ICD-10-PCS; principal; 2020-05-22)
PROC: 0DB78ZX Excision of Stomach, Pylorus, Via Natural or Artificial Opening Endoscopic, Diagnostic (ICD-10-PCS; 2020-05-22)
PROC: 0DBK8ZZ Excision of Ascending Colon, Via Natural or Artificial Opening Endoscopic (ICD-10-PCS; 2020-05-22)
DX: B37.81 Candidal esophagitis (principal); E11.10 Type 2 diabetes mellitus with ketoacidosis without coma; E87.2 Acidosis; E03.9 Hypothyroidism, unspecified; E78.5 Hyperlipidemia, unspecified; E86.0 Dehydration; I10 Essential (primary) hypertension; R13.10 Dysphagia, unspecified; R10.13 Epigastric pain; E05.90 Thyrotoxicosis, unspecified without thyrotoxic crisis or storm; D75.1 Secondary polycythemia; N28.1 Cyst of kidney, acquired; E11.43 Type 2 diabetes mellitus with diabetic autonomic (poly)neuropathy; K31.84 Gastroparesis; K59.09 Other constipation; R68.81 Early satiety; K63.5 Polyp of colon; R63.4 Abnormal weight loss; Z79.4 Long term (current) use of insulin; Z68.28 Body mass index [BMI] 28.0-28.9, adult
CPT/HCPCS: 36415; 36416; 71260; 74177; 78264; 80048; 80053; 81001; 81003; 81015; 82010; 83036; 83690; 84439; 84443; 84484; 85025; 87086; 87635; 88305; 88312; 88313; 93005; 96361; 96365; A9541; C9113; J0696; J1650; J1815; J2405; J2704; J3370; J7030; Q9967; U0002; U0003

== ENCOUNTER 2020-06-05 10:15 | Emergency (ER) | payer MEDICARE ==
--- NOTE | 2020-06-05 13:14 | RAD ---
XR Chest 1 View Portable HISTORY: Chest pain COMPARISON: None FINDINGS: The heart size is normal. The lungs are well expanded without focal areas of consolidation, pneumothorax or pleural effusions. IMPRESSION: No radiographic evidence of acute cardiopulmonary process.
[2020-06-05 13:25] LABS: #Basophils 0.1 thou/uL (0.0-0.2); #Lymphocytes 2.4 thou/uL (1.20-3.40); #Monocytes 0.5 thou/uL (0.11-0.59); #Neutrophils 2.7 thou/uL (1.40-6.50); %Basophils 1.2 % (0.0-1.0); %Eosinophils 0.7 % (0.0-10.0); %Lymphocytes 41.8 % (21.0-51.0); %Monocytes 9.2 % (0.0-10.0); %Neutrophils 47.2 % (42.0-75.0); Hemoglobin 15.5 g/dL (12.0-16.0); Mean Corpuscular HGB CONC 32.6 g/dL (32.0-36.0); Mean Corpuscular Hemoglobin 28.9 pg (27.0-31.0); Mean Corpuscular Volume 88.5 fL (78.0-98.0); Mean Platelet Volume 8.4 fL (7.4-10.4); Platelet Count 260 thou/uL (130-400); RBC Distribution Width 13.6 % (11.5-14.5); Red Blood Cell (RBC) Count 5.38 mill/uL (4.20-5.40); White Blood Cell (WBC) Count 5.8 thou/uL (4.8-10.8)
[2020-06-05] MEDS ORDERED: Pantoprazole 40 MG VIAL ONE (14:56)
[2020-06-05 14:58] LABS: Bilirubin 1+ (Negative); Blood, Urine Negative (Negative); Calcium Oxalate Crystals 3+ HPF (None Seen); Clarity Clear (Clear); Glucose, Urine (Dipstick) Normal (Negative); Ketone, Urine 60 mg/dL (Negative); Leukocyte Negative Leu/uL (Negative); Nitrite Negative (Negative); Protein, Urine (Dipstick) 50 mg/dL (Neg-Trace); Specific Gravity, Urine 1.031 (1.002-1.036); WBC/HPF None Seen HPF (0-3); pH, Urine 5.5 (5.0-9.0)
[2020-06-05 14:59] LABS: Bacteria/HPF 1+ HPF (None Seen)
[2020-06-05 15:17] LABS: Albumin 3.4 g/dL (3.4-4.8)
[2020-06-05 15:18] LABS: Chloride 101 mmol/L (98-107); Potassium 3.3 mmol/L (3.5-5.1); Sodium 135 mmol/L (136-145)
[2020-06-05 15:19] LABS: Calcium 8.6 mg/dL (7.8-10.44)
[2020-06-05 15:20] LABS: Glucose 126 mg/dL (80-115); Protein, Total 7.4 g/dL (6.0-8.3)
[2020-06-05 15:21] LABS: Anion Gap 14 mmol/L (10-20); Bilirubin, Total 0.9 mg/dL (0.2-1.2); Carbon Dioxide 23 mmol/L (23-31)
[2020-06-05 15:23] LABS: Alkaline Phosphatase 84 U/L (40-110); Calc. Creatinine Clearance 0 mL/min (70-130); Estimated GFR-MDRD 80
[2020-06-05 15:24] LABS: BUN (Urea Nitrogen) 8 mg/dL (9.8-20.1)
[2020-06-05 15:25] LABS: AST (SGOT) 17 U/L (5-34); Magnesium 1.6 mg/dL (1.6-2.6)
[2020-06-05 15:26] LABS: ALT (SGPT) 16 U/L (8-55); Lipase 18 U/L (8-78)
== END 2020-06-05 16:43 | disposition home or self-care (01) ==
LOC: ERS 10:15
DX: R10.13 Epigastric pain (principal); R31.9 Hematuria, unspecified; R11.2 Nausea with vomiting, unspecified; I10 Essential (primary) hypertension; R00.0 Tachycardia, unspecified; E05.90 Thyrotoxicosis, unspecified without thyrotoxic crisis or storm; E78.5 Hyperlipidemia, unspecified; E11.9 Type 2 diabetes mellitus without complications; Z79.4 Long term (current) use of insulin
CPT/HCPCS: 36415; 71045; 80053; 81003; 81015; 83690; 83735; 84484; 85025; 93005; 96365; C9113

== ENCOUNTER 2020-07-02 18:59 | Emergency (ER) | payer MEDICARE ==
[2020-07-02 19:52] LABS: #Basophils 0.1 thou/uL (0.0-0.2); #Lymphocytes 3.2 thou/uL (1.20-3.40); #Monocytes 0.7 thou/uL (0.11-0.59); #Neutrophils 3.3 thou/uL (1.40-6.50); %Eosinophils 0.6 % (0.0-10.0); %Lymphocytes 43.4 % (21.0-51.0); Hemoglobin 14.9 g/dL (12.0-16.0); Mean Corpuscular HGB CONC 35.5 g/dL (32.0-36.0); Mean Corpuscular Hemoglobin 31.4 pg (27.0-31.0); Mean Corpuscular Volume 88.5 fL (78.0-98.0); Mean Platelet Volume 7.8 fL (7.4-10.4); Platelet Count 205 thou/uL (130-400); RBC Distribution Width 13.5 % (11.5-14.5); Red Blood Cell (RBC) Count 4.75 mill/uL (4.20-5.40); White Blood Cell (WBC) Count 7.4 thou/uL (4.8-10.8)
[2020-07-02 20:09] LABS: ALT (SGPT) 23 U/L (8-55); AST (SGOT) 20 U/L (5-34); Alkaline Phosphatase 71 U/L (40-110); Anion Gap 18 mmol/L (10-20); BUN (Urea Nitrogen) 14 mg/dL (9.8-20.1); Bilirubin, Total 1.3 mg/dL (0.2-1.2); Calc. Creatinine Clearance 0 mL/min (70-130); Calcium 9.8 mg/dL (7.8-10.44); Carbon Dioxide 23 mmol/L (23-31); Chloride 95 mmol/L (98-107); Globulin 4.1 g/dL (2.4-3.5); Glucose 123 mg/dL (80-115); Potassium 3.3 mmol/L (3.5-5.1); Protein, Total 8.1 g/dL (6.0-8.3); Sodium 133 mmol/L (136-145)
[2020-07-02 21:14] LABS: Bilirubin 1+ (Negative); Blood, Urine Negative (Negative); Clarity Turbid (Clear); Glucose, Urine (Dipstick) 30 mg/dL (Negative); Ketone, Urine 40 mg/dL (Negative); Leukocyte 25 Leu/uL (Negative); Nitrite Negative (Negative); Protein, Urine (Dipstick) 100 mg/dL (Neg-Trace); RBC/HPF None Seen HPF (0-3); Specific Gravity, Urine 1.031 (1.002-1.036); pH, Urine 5.5 (5.0-9.0)
[2020-07-02 21:33] LABS: Bacteria/HPF Rare-Few HPF (None Seen)
[2020-07-02 21:34] LABS: Calcium Oxalate Crystals 2+ HPF (None Seen)
== END 2020-07-02 21:23 | disposition home or self-care (01) ==
LOC: ERS 18:59
DX: E11.43 Type 2 diabetes mellitus with diabetic autonomic (poly)neuropathy (principal); K31.84 Gastroparesis; Z79.4 Long term (current) use of insulin; E78.5 Hyperlipidemia, unspecified; I10 Essential (primary) hypertension; E05.90 Thyrotoxicosis, unspecified without thyrotoxic crisis or storm
CPT/HCPCS: 36415; 80053; 81003; 81015; 85025; 87086; 93005; 96360

== ENCOUNTER 2020-08-01 01:40 | Observation (INO) | payer MEDICARE ==
[2020-08-01] MEDS ORDERED: Magnesium Sulfate 2 GM in Sodium Chloride 0.9% 100 ML IVPB SCH (04:45)
[2020-08-01 05:15] LABS: Hemoglobin A1c 7.4 % (4.0-6.0)
[2020-08-01] MEDS ORDERED: Ondansetron PF 4 MG/2 ML Vial IVP PRN (05:30)
[2020-08-01] MEDS ORDERED: Acetaminophen 325 MG TAB PO PRN (05:30)
[2020-08-01] MEDS ORDERED: Ondansetron ODT 4 MG TAB SL PRN (05:30)
[2020-08-01 05:33] LABS: Anion Gap 17 mmol/L (10-20); BUN (Urea Nitrogen) 5 mg/dL (9.8-20.1); Calc. Creatinine Clearance 0 mL/min (70-130); Calcium 8.4 mg/dL (7.8-10.44); Carbon Dioxide 17 mmol/L (23-31); Glucose 99 mg/dL (80-115); Potassium 3.5 mmol/L (3.5-5.1)
[2020-08-01 05:48] LABS: Chloride 108 mmol/L (98-107); Sodium 138 mmol/L (136-145)
[2020-08-01] MEDS ORDERED: Magnesium Sulfate 4 GM in Sodium Chloride 0.9% 250 ML 250 ML IVPB SCH (06:30)
--- NOTE | 2020-08-01 06:42 | PDOC.HHP ---
Hospitalist HPI - History of Present Illness weakness History of Present Illness: This is a 65-year-old female patient with a history of hypertension, diabetes mellitus and hyperlipidemia who presents with worsening weakness and early satiety for about the past month. Of note she was admitted a couple of months ago and discharged on 05/23/2020 and was managed for gastritis and early satiety. Upper GI endoscopy noted gastritis while colonoscopy noted some polyps which were resected for histology. Gastric emptying study was within normal limits. She also had esophagitis secondary to consider thus was treated with fluconazole. She notes that ever since discharge she has been fully well and has been losing weight and has been progressively becoming weak. She also notes worsening LSAT 80 without any nausea or vomiting. She denies any diarrhea constipation dysuria frequency or hematuria. She was sent to the ED at [place]. At presentation her blood pressure was 138/77, pulse 121, respiratory rate 20, temperature 97.6, saturating 97 on room air. Labs show severe hypokalemia of 2.8. She received potassium chloride, 3 L normal saline prior to transfer from [place] here for further evaluation. Chest x-ray looked generally unremarkable. Further evaluation noted that she had severe hypomagnesemia of 1.0. She received some more potassium here prior to hospitalist team consulted for admission Hospitalist ROS - Review of Systems Constitutional: reports: weakness, malaise. denies: fever, chills, sweats Respiratory: denies: cough, shortness of breath Gastrointestinal: denies: nausea, vomiting, abdominal pain, diarrhea, constipation Genitourinary: denies: dysuria, frequency, incontinence Neurological: denies: weakness, numbness, incoordination, change in speech All other systems reviewed; all pertinent +/- noted in HPI/Subj - Medication Medications: Medications: Currently refer to ambulatory list. Allergies: No known drug allergies Hospitalist History - Past Medical History Endocrine: reports: Diabetes, Hyperthyroidism Other Medical History: hypertension, diabetes mellitus and hyperlipidemia - Social History Alcohol: reports: None - Exam General Appearance: awake alert General - other findings: Ill looking however not in acute distress Eye: PERRL, anicteric sclera Heart: RRR, no murmur, no gallops, no rubs Respiratory: CTAB, no wheezes, no rales, no ronchi Gastrointestinal: soft, non-tender, non-distended, normal bowel sounds Extremities: no cyanosis, no clubbing, no edema Neurological: cranial nerve grossly intact, no focal deficits Psychiatric: normal affect, normal behavior, A&O x 3 Hospitalist Results - Labs Result Diagrams: 08/02/20 04:16 08/02/20 04:16 Lab results: Sodium 138 mmol/L (136-145) 08/01/20 05:01 Potassium 3.5 mmol/L (3.5-5.1) 08/01/20 05:01 Chloride 108 mmol/L (98-107) H 08/01/20 05:01 Carbon Dioxide 17 mmol/L (23-31) L 08/01/20 05:01 BUN 5 mg/dL (9.8-20.1) L 08/01/20 05:01 Creatinine 0.70 mg/dL (0.6-1.1) 08/01/20 05:01 Glucose 99 mg/dL (80-115) 08/01/20 05:01 Calcium 8.4 mg/dL (7.8-10.44) 08/01/20 05:01 Hospitalist H&P A/P - Plan Plan: This is a 65-year-old female patient for history of hypertension, hyperlipidemia uncontrolled diabetes mellitus recently diagnosed with gastritis and esophageal candidiasis presented on account of progressive weakness and weight loss and early satiety. Generalized weakness Unclear etiology likely electrolyte imbalances Is unclear what the cause of her electrolyte imbalances are however. She has hypokalemia and hypomagnesemia however she denies any diarrhea or vomiting or polyuria. Replace electrolytes Check echocardiogram Consider GI evaluation. Also evaluation for malignancy Hypokalemia Potassium 2.8 representation Likely secondary to hypomagnesemia Potassium corrected along with magnesium Consider nephrology consult if electrolyte imbalances persist Follow-up repeat BMP Hypomagnesemia Magnesium 1.0 4 g magnesium sulfate ordered Follow-up repeat levels. Early satiety Unclear etiology Gastric emptying study done recently showed no abnormality May need GI evaluation Gastritis Continue Protonix Hypertension Resume home blood pressure medications Diabetes mellitus Correctional insulin Monitor glucose VT prophylaxis Lovenox CODE STATUSfull code
[2020-08-01] MEDS ORDERED: Dextrose 5% in Water 1,000 ML IV PRN (07:10)
[2020-08-01] MEDS ORDERED: Dextrose 50% Abboject 50 ML SYRINGE SLOW IVP PRN (07:10)
[2020-08-01] MEDS ORDERED: HumaLOG 300 UNITS/3 ML VIAL SC PRN (07:10)
[2020-08-01] MEDS: Sodium Chloride 0.9% 1,000 ML IV SCH ×2 (07:42→16:48)
[2020-08-01] MEDS ORDERED: Pantoprazole 40 MG VIAL ONE (08:34)
[2020-08-01] MEDS ORDERED: Enoxaparin Sodium 40 MG/0.4 ML SYRINGE ONE (08:34)
[2020-08-01] MEDS: Enoxaparin Sodium 40 MG/0.4 ML SYRINGE SC SCH (08:40)
[2020-08-01] MEDS: Pantoprazole 40 MG VIAL IVP SCH ×2 (08:44→22:31)
[2020-08-01] MEDS ORDERED: Sodium Chloride 0.9% (PF) 10 ML VIAL FS PRN (08:45)
[2020-08-01 13:00] LABS: Anion Gap 16 mmol/L (10-20); BUN (Urea Nitrogen) 4 mg/dL (9.8-20.1); Calc. Creatinine Clearance 0 mL/min (70-130); Calcium 8.6 mg/dL (7.8-10.44); Carbon Dioxide 21 mmol/L (23-31); Chloride 107 mmol/L (98-107); Glucose 87 mg/dL (80-115); Magnesium 2.4 mg/dL (1.6-2.6); Potassium 3.2 mmol/L (3.5-5.1); Sodium 141 mmol/L (136-145)
[2020-08-01 14:19] LABS: SARS-CoV-2 PCR by NAA Not Detected (NotDetected)
[2020-08-01] MEDS ORDERED: Metoprolol Tartrate 50 MG TAB PO SCH (14:45)
--- NOTE | 2020-08-01 16:00 | PDOC.BPN ---
- Brief Progress Note Encounter Date: 08/01/20 Is a 65-year-old -[place] female with a past medical history of uncontrolled type 2 diabetes who presented to the ER with generalized weakness, early satiety and weight loss. Found to have a magnesium 1.0, which was successfully repleted. She had extensive study and had prior admission in May 2020 for similar symptoms. EGD revealed whitish plaque in the upper, mid and distal esophagus concerning for fungal esophageal candidiasis she was treated with fluconazole until biopsy revealed negative results. She also had a colonoscopy at that time which showed a 1 cm ascending colon polyp, and a normal gastric emptying study. Normal encounter with the patient she was feeling a lot better and ambulate without assistance. However, she was persistently tachycardic with a heart rate in the 120s. She has been on volume repletion since admission. Her EKG shows sinus tachycardia. I have resumed her metoprolol. I think we should keep her overnight better rate control and discharge her thing in the morning tomorrow. I also had a conversation with Dr. Rich Sanderson who is willing to follow-up with the patient as outpatient. Nothing to do inpatient.
[2020-08-01] MEDS ORDERED: Metoprolol Tartrate 50 MG TAB ONE (16:49)
[2020-08-01 18:55] VITALS: BMI 24.0
[2020-08-01] MEDS: Metoprolol Tartrate 50 MG TAB PO SCH (22:32)
[2020-08-02 04:50] LABS: #Basophils 0.1 thou/uL (0.0-0.2); #Eosinphils 0.1 thou/uL (0.0-0.7); #Lymphocytes 3.1 thou/uL (1.20-3.40); #Monocytes 0.6 thou/uL (0.11-0.59); #Neutrophils 2.5 thou/uL (1.40-6.50); %Basophils 1.6 % (0.0-1.0); %Eosinophils 1.5 % (0.0-10.0); %Lymphocytes 48.6 % (21.0-51.0); %Monocytes 9.3 % (0.0-10.0); Hemoglobin 11.8 g/dL (12.0-16.0); Mean Corpuscular Hemoglobin 29.5 pg (27.0-31.0); Mean Corpuscular Volume 89.4 fL (78.0-98.0); Mean Platelet Volume 8.1 fL (7.4-10.4); Platelet Count 184 thou/uL (130-400); RBC Distribution Width 14.7 % (11.5-14.5); Red Blood Cell (RBC) Count 4.01 mill/uL (4.20-5.40); White Blood Cell (WBC) Count 6.4 thou/uL (4.8-10.8)
[2020-08-02 05:37] LABS: Anion Gap 14 mmol/L (10-20); BUN (Urea Nitrogen) Less than 4 mg/dL (9.8-20.1); Calc. Creatinine Clearance 90 mL/min (70-130); Calcium 8.2 mg/dL (7.8-10.44); Carbon Dioxide 21 mmol/L (23-31); Chloride 107 mmol/L (98-107); Glucose 149 mg/dL (80-115); Potassium 3.4 mmol/L (3.5-5.1); Sodium 139 mmol/L (136-145)
[2020-08-02] MEDS: Pantoprazole 40 MG VIAL IVP SCH ×2 (09:00→20:32)
[2020-08-02] MEDS: Metoprolol Tartrate 50 MG TAB PO SCH ×2 (09:00→20:31)
[2020-08-02] MEDS: Enoxaparin Sodium 40 MG/0.4 ML SYRINGE SC SCH (09:00)
[2020-08-02] MEDS ORDERED: Potassium Chloride 20 MEQ TAB PO SCH ×2 (10:00→13:45)
[2020-08-02 12:16] LABS: HIV (1/2) Antibody/Antigen Non-Reactive (NonReactive); HIV 1/2 INDEX 0.09 S/CO (<1.00)
[2020-08-02] MEDS ORDERED: Magnesium 2 GM/50 ML 2 GM in Premix Bag 1 BAG IVPB SCH (13:45)
[2020-08-02] MEDS: Acetaminophen 325 MG TAB PO PRN (15:36)
--- NOTE | 2020-08-02 16:09 | PDOC.DS.DS ---
Provider - Provider Date of Admission: 08/01/20 03:14 Date of Discharge: 08/03/20 Admitting Provider: Dylan Haynes MD Primary Care Physician: Mara Smith Course - Hospital Course Hospital Course: Patient is a 65-year-old female who initially presented to the hospital for generalized weakness. She has a history of hypertension diabetes. She has been complaining of early satiety for the past month. She had a gastric emptying stenting done which was normal. She also had a EGD colonoscopy. Her EGD indicated esophageal Shirley and was treated. Patient on this admission was found to have low magnesium level. Which was replaced. I have started her on magnesium. Patient states that when she overeats she does have abdominal pain. I told her to do 6-7 small meals throughout the day. I also recommended her to follow-up as an outpatient with the GI physician. Was noted to have abnormalities that are noted below on her previous scan have asked her to follow-up with her primary care doctor in regards to that. She has hypothyroidism and her medication recently was titrated down by her primary care. HIV was negative. Her face was normal. You have a low dense lesion in the thyroid gland. Left renal cyst. Intermitted 5 mm right lower lobe lung nodule. Also have a 1 cm lymph node in the gastrohepatic ligament Resuscitation Status: 08/01/20 04:33 Resuscitation Status Routine Resuscitation Status: FULL: Full Resuscitation - Labs Lab Results: 08/02/20 04:16 08/02/20 04:16 Abnormal Lab Results - Last 48 hrs 08/01/20 02:01: D-Dimer 0.52 H 08/01/20 05:01: Chloride 108 H, Carbon Dioxide 17 L, BUN 5 L, Magnesium 1.0 L 08/01/20 05:01: Hemoglobin A1c 7.4 H 08/01/20 12:23: Potassium 3.2 L, Carbon Dioxide 21 L, BUN 4 L 08/02/20 04:16: Potassium 3.4 L, Carbon Dioxide 21 L, BUN Less than 4 L 08/02/20 04:16: RBC 4.01 L, Hgb 11.8 L, Hct 35.9 L, RDW 14.7 H, Neutrophils % 39.0 L, Basophils % 1.6 H, Monocytes # 0.6 H 08/02/20 04:16: Magnesium 1.4 L - Physical Exam Vitals: Vital Signs (12 hours) Temp Pulse Resp BP BP Pulse Ox 08/02/20 11:31 97.7 F 95 16 129/81 100 08/02/20 08:15 98.5 F 98 16 135/82 100 08/02/20 05:17 98.5 F 87 18 120/73 100 Weight Admit Weight 149 lb 3.2 oz Weight 149 lb 3.2 oz Physical Exam: The patient was seen and examined on the day of discharge. Problem - Discharge Plan Assessment: #1Generalized weakness weakness #2 hypokalemia next hypomagnesemia #3 gastritis #4 diabetes Plan - Discharge Medications Prescriptions: Magnesium Oxide 400 mg PO BID #60 tab Pantoprazole [Protonix] 40 mg PO DAILY #30 tab Home Medications: Medication Instructions Recorded Confirmed Type Atorvastatin Calcium [Lipitor] 40 mg PO QAM 05/20/20 08/01/20 History Insulin Detemir [Levemir] 25 unit SQ QAM 05/20/20 08/01/20 History Methimazole 10 mg PO DAILY 05/20/20 08/01/20 History Metoprolol Tartrate 50 mg PO BID 05/20/20 08/01/20 History metFORMIN [Glucophage] 500 mg PO BID 05/20/20 08/01/20 History Magnesium Oxide 400 mg PO BID #60 tab 08/02/20 Rx Pantoprazole [Protonix] 40 mg PO DAILY #30 tab 08/02/20 Rx Allergies: No Known Allergies Allergy (Verified 05/20/20 21:45) - Discharge Instructions Discharge Instructions:: You have a low dense lesion in the thyroid gland. Left renal cyst. Intermitted 5 mm right lower lobe lung nodule. Also have a 1 cm lymph node in the gastrohepatic ligament Activity:: Activity as Tolerated Nourishment:: Diabetic Diet, Heart Healthy Diet - Follow up Plan Referrals: Rich Sanderson MD [Active] - 2-3 Weeks (Please call and make follow-up appointment within 2-3 weeks. ) Mara Smith MD [Primary Care Provider] - 7 Days (Please call and make a follow-up appointment within 7 days. ) Disposition: HOME Quality - Care Measures CORE MEASURES:: N/A
[2020-08-02] MEDS ORDERED: Bisacodyl 5 MG TAB PO SCH (17:00)
[2020-08-02] MEDS ORDERED: Polyethylene Glycol 3350 17 GM Packet PO SCH (17:00)
[2020-08-02] MEDS: Magnesium Oxide 400 MG TAB PO SCH (20:31)
[2020-08-02] MEDS: metFORMIN 500 MG TAB PO SCH (20:32)
[2020-08-03] MEDS: Acetaminophen 325 MG TAB PO PRN (05:45)
[2020-08-03] MEDS: Metoprolol Tartrate 50 MG TAB PO SCH (08:36)
[2020-08-03] MEDS: metFORMIN 500 MG TAB PO SCH (08:36)
[2020-08-03] MEDS: Magnesium Oxide 400 MG TAB PO SCH (08:37)
[2020-08-03] MEDS: Enoxaparin Sodium 40 MG/0.4 ML SYRINGE SC SCH (08:37)
[2020-08-03] MEDS: Pantoprazole 40 MG VIAL IVP SCH (08:40)
[2020-08-03] MEDS ORDERED: Methimazole 10 MG TAB PO SCH (09:00)
[2020-08-03] MEDS ORDERED: Atorvastatin Calcium 40 MG TAB PO SCH (09:00)
[2020-08-03] MEDS ORDERED: Magnesium Sulfate 4 GM in Sodium Chloride 0.9% 250 ML 250 ML IVPB SCH (09:30)
[2020-08-03 11:22] VITALS: BP 112/57; TEMP 97.8
--- NOTE | 2020-08-03 15:34 | PDOC.HOSPP ---
- Subjective Encounter Date: 08/02/20 Encounter Time: 10:00 Subjective: PT up in bed currently no complains. - Objective Vital Signs & Weight: Vital Signs (12 hours) Temp Pulse Resp BP BP Pulse Ox 08/03/20 11:21 97.8 F 84 12 112/57 L 99 08/03/20 08:00 97.7 F 99 12 132/81 98 08/03/20 03:58 97.6 F 98 16 119/74 99 Weight Admit Weight 149 lb 3.2 oz Weight 149 lb 4.8 oz I&O: 08/02/20 08/03/20 08/04/20 06:59 06:59 06:59 Intake Total 1557 770 Balance 1557 770 Result Diagrams: 08/02/20 04:16 08/02/20 04:16 Additional Labs: Accuchecks 08/03/20 08/03/20 08/02/20 10:24 06:33 20:57 POC Glucose 136 H 129 H 135 H 08/02/20 16:28 POC Glucose 117 H Hospitalist ROS - Review of Systems Cardiovascular: denies: chest pain, palpitations, orthopnea, paroxysmal noc. dyspnea, edema, light headedness, other Gastrointestinal: denies: nausea, vomiting, abdominal pain, diarrhea, constipation, melena, hematochezia, other Genitourinary: denies: dysuria, frequency, incontinence, hematuria, retention, other - Medication Medications: Active Medications Generic Name Dose Route Start Last Admin Trade Name Freq PRN Reason Stop Dose Admin Acetaminophen 650 mg 08/02/20 15:29 08/03/20 05:45 Acetaminophen 325 Mg Tab PO 650 mg Q6H PRN Administration Fever>101/(Mi/Mod/Sev) Pain Atorvastatin Calcium 40 mg 08/03/20 09:00 08/03/20 08:37 Atorvastatin Calcium 40 Mg Tab PO 40 mg QAM RENETTA Administration Enoxaparin Sodium 40 mg 08/01/20 09:00 08/03/20 08:37 Enoxaparin Sodium 40 Mg/0.4 Ml Syringe SC 40 mg 0900 RENETTA Administration Magnesium Oxide 400 mg 08/02/20 21:00 08/03/20 08:37 Magnesium Oxide 400 Mg Tab PO 400 mg BID RENETTA Administration Metformin HCl 500 mg 08/02/20 21:00 08/03/20 08:36 Metformin 500 Mg Tab PO 500 mg BID RENETTA Administration Methimazole 10 mg 08/03/20 09:00 08/03/20 08:37 Methimazole 10 Mg Tab PO 10 mg DAILY RENETTA Administration Metoprolol Tartrate 50 mg 08/01/20 21:00 08/03/20 08:36 Metoprolol Tartrate 50 Mg Tab PO 50 mg BID RENETTA Administration Pantoprazole Sodium 40 mg 08/01/20 09:00 08/03/20 08:40 Pantoprazole 40 Mg Vial IVP 40 mg Q12HR RENETTA Administration Sodium Chloride 10 ml 08/01/20 09:00 08/03/20 08:42 Flush - Normal Saline 10 Ml Syringe IVF 10 ml Q12HR RENETTA Administration - Exam Heart: negative: RRR, no murmur, no gallops, no rubs, normal peripheral pulses, irregular, diminshed peripheral pulses, murmur present, II/IV, III/IV Respiratory: negative: CTAB, no wheezes, no rales, no ronchi, normal chest expansion, no tachypnea, normal percussion, rales, rhonchi, tachypneic, wheezes Gastrointestinal: negative: soft, non-tender, non-distended, normal bowel sounds , no palpable masses, no hepatomegaly, no splenomegaly, no bruit, no guarding, no rigidity, tender to palpation, distended, diminished bowl sounds, voluntary guarding Hosp A/P (1) Generalized weakness Code(s): R53.1 - WEAKNESS Status: Acute (2) Pain in the abdomen Code(s): R10.9 - UNSPECIFIED ABDOMINAL PAIN Status: Acute (3) Hyperthyroidism Code(s): E05.90 - THYROTOXICOSIS, UNSP WITHOUT THYROTOXIC CRISIS OR STORM Status: Acute - Plan Spoke with GI we will follow-up as an outpatient. Patient recently had an EGD colonoscopy no acute findings. She also had a gastric emptying setting patient was normal. I have advised the patient to eat small frequent meals. If she tolerates her meal I will most likely discharge her home today.
--- NOTE | 2020-08-19 21:02 | EKG ---
Test Reason : TACHYCARDIA Blood Pressure : / mmHG Vent. Rate : 115 BPM Atrial Rate : 115 BPM P-R Int : 118 ms QRS Dur : 074 ms QT Int : 322 ms P-R-T Axes : [phone] degrees QTc Int : 445 ms Sinus tachycardia Possible Left atrial enlargement Right superior axis deviation Cannot rule out Anterior infarct , age undetermined Abnormal ECG Confirmed by SUSAN NAIK ([id number]), editor trade journal XIMENA CABRERA ([id number]) on 08/19/2020 9:01:39 PM Referred By: GUMARO Confirmed By:SUSAN NAIK
== END 2020-08-03 16:40 | disposition home or self-care (01) ==
LOC: ERS 01:40 → ERHOLD 03:14 → 2NO 18:17
PROVIDERS: ADMIT Student in an Organized Health Care Education/Training Program; ATTEND Internal Medicine
DX: R53.1 Weakness (principal); E87.6 Hypokalemia; E83.42 Hypomagnesemia; K29.70 Gastritis, unspecified, without bleeding; E11.9 Type 2 diabetes mellitus without complications; R68.81 Early satiety; I10 Essential (primary) hypertension; E78.5 Hyperlipidemia, unspecified; E05.90 Thyrotoxicosis, unspecified without thyrotoxic crisis or storm; N28.1 Cyst of kidney, acquired; R91.1 Solitary pulmonary nodule; R63.4 Abnormal weight loss; Z68.24 Body mass index [BMI] 24.0-24.9, adult; Z79.4 Long term (current) use of insulin; Z79.899 Other long term (current) drug therapy; Z20.822 Contact with and (suspected) exposure to COVID-19
CPT/HCPCS: 80048 ×3; 82962 ×2; 83036; 83735 ×3; 84443; 85025; 85379; 87389; 93005; 99285; U0003; U0005; 36415; 36416; 87635; 96365; 96366; 96372; 96375; 96376; C9113; G0378; J1650; J3475; J7050

== ENCOUNTER 2020-10-16 11:24 | Inpatient (IN) | payer MEDICARE ==
[2020-10-16] MEDS ORDERED: HumaLOG 300 UNITS/3 ML VIAL SC PRN ×2 (17:23)
[2020-10-16] MEDS ORDERED: Dextrose 5% in Water 1,000 ML IV PRN (17:23)
[2020-10-16] MEDS ORDERED: Dextrose 50% Abboject 50 ML SYRINGE SLOW IVP PRN (17:23)
[2020-10-16] MEDS: Sodium Chloride 0.9% 1,000 ML IV SCH (17:41)
[2020-10-16] MEDS ORDERED: Pantoprazole 40 MG VIAL IVP SCH (17:45)
[2020-10-16 17:58] LABS: #Basophils 0.1 thou/uL (0.0-0.2); #Eosinphils 0.1 thou/uL (0.0-0.7); #Lymphocytes 3.6 thou/uL (1.20-3.40); #Monocytes 0.6 thou/uL (0.11-0.59); #Neutrophils 4.2 thou/uL (1.40-6.50); %Basophils 1.5 % (0.0-1.0); %Eosinophils 1.1 % (0.0-10.0); %Lymphocytes 42.1 % (21.0-51.0); %Monocytes 7.1 % (0.0-10.0); %Neutrophils 48.2 % (42.0-75.0); Hemoglobin 12.8 g/dL (12.0-16.0); Mean Corpuscular HGB CONC 32.7 g/dL (32.0-36.0); Mean Corpuscular Hemoglobin 30.7 pg (27.0-31.0); Mean Corpuscular Volume 93.9 fL (78.0-98.0); Mean Platelet Volume 7.4 fL (7.4-10.4); Platelet Count 232 thou/uL (130-400); RBC Distribution Width 12.4 % (11.5-14.5); Red Blood Cell (RBC) Count 4.17 mill/uL (4.20-5.40); White Blood Cell (WBC) Count 8.6 thou/uL (4.8-10.8)
[2020-10-16 18:18] LABS: ALT (SGPT) 12 U/L (8-55); AST (SGOT) 14 U/L (5-34); Albumin 3.5 g/dL (3.4-4.8); Alkaline Phosphatase 49 U/L (40-110); Anion Gap 13 mmol/L (10-20); BUN (Urea Nitrogen) 12 mg/dL (9.8-20.1); Bilirubin, Total 0.7 mg/dL (0.2-1.2); Calc. Creatinine Clearance 70 mL/min (70-130); Calcium 9.3 mg/dL (7.8-10.44); Carbon Dioxide 26 mmol/L (23-31); Chloride 101 mmol/L (98-107); Globulin 3.2 g/dL (2.4-3.5); Glucose 144 mg/dL (80-115); Magnesium 1.4 mg/dL (1.6-2.6); Potassium 3.5 mmol/L (3.5-5.1); Protein, Total 6.7 g/dL (5.8-8.1); Sodium 136 mmol/L (136-145)
[2020-10-16] MEDS ORDERED: Magnesium 2 GM/50 ML 2 GM in Premix Bag 1 BAG IVPB SCH (18:30)
[2020-10-17 04:14] LABS: #Basophils 0.1 thou/uL (0.0-0.2); #Eosinphils 0.1 thou/uL (0.0-0.7); #Monocytes 0.6 thou/uL (0.11-0.59); #Neutrophils 3.3 thou/uL (1.40-6.50); %Basophils 1.6 % (0.0-1.0); %Eosinophils 1.5 % (0.0-10.0); %Lymphocytes 42.3 % (21.0-51.0); %Monocytes 8.3 % (0.0-10.0); %Neutrophils 46.3 % (42.0-75.0); Hemoglobin 11.4 g/dL (12.0-16.0); Mean Corpuscular HGB CONC 32.2 g/dL (32.0-36.0); Mean Corpuscular Volume 93.3 fL (78.0-98.0); Mean Platelet Volume 7.5 fL (7.4-10.4); Platelet Count 216 thou/uL (130-400); RBC Distribution Width 12.3 % (11.5-14.5); Red Blood Cell (RBC) Count 3.81 mill/uL (4.20-5.40)
[2020-10-17 04:36] LABS: Anion Gap 12 mmol/L (10-20); BUN (Urea Nitrogen) 8 mg/dL (9.8-20.1); Calc. Creatinine Clearance 80 mL/min (70-130); Calcium 8.4 mg/dL (7.8-10.44); Carbon Dioxide 22 mmol/L (23-31); Chloride 103 mmol/L (98-107); Glucose 153 mg/dL (80-115); Magnesium 1.8 mg/dL (1.6-2.6); Potassium 3.3 mmol/L (3.5-5.1); Sodium 134 mmol/L (136-145)
[2020-10-17 05:53] LABS: SARS-CoV-2 PCR by NAA Not Detected (NotDetected)
[2020-10-17] MEDS: Sodium Chloride 0.9% 1,000 ML IV SCH ×2 (05:57→20:44)
[2020-10-17] MEDS: Pantoprazole 40 MG VIAL IVP SCH (10:11)
[2020-10-17] MEDS ORDERED: Bisacodyl 5 MG TAB PO PRN (12:46)
[2020-10-17] MEDS ORDERED: Bisacodyl 5 MG TAB PO SCH (13:00)
[2020-10-18] MEDS ORDERED: Metoprolol Tartrate 50 MG TAB PO SCH ×2 (02:00→09:00)
[2020-10-18 06:04] LABS: #Basophils 0.1 thou/uL (0.0-0.2); #Eosinphils 0.1 thou/uL (0.0-0.7); #Lymphocytes 2.6 thou/uL (1.20-3.40); #Monocytes 0.6 thou/uL (0.11-0.59); #Neutrophils 4.6 thou/uL (1.40-6.50); %Basophils 1.2 % (0.0-1.0); %Eosinophils 0.8 % (0.0-10.0); %Lymphocytes 32.3 % (21.0-51.0); %Monocytes 8.1 % (0.0-10.0); %Neutrophils 57.8 % (42.0-75.0); Mean Corpuscular HGB CONC 32.6 g/dL (32.0-36.0); Mean Corpuscular Hemoglobin 30.5 pg (27.0-31.0); Mean Corpuscular Volume 93.6 fL (78.0-98.0); Mean Platelet Volume 7.6 fL (7.4-10.4); Platelet Count 206 thou/uL (130-400); RBC Distribution Width 12.3 % (11.5-14.5); Red Blood Cell (RBC) Count 3.59 mill/uL (4.20-5.40); White Blood Cell (WBC) Count 7.9 thou/uL (4.8-10.8)
[2020-10-18 06:31] LABS: Anion Gap 14 mmol/L (10-20); BUN (Urea Nitrogen) 5 mg/dL (9.8-20.1); Calc. Creatinine Clearance 93 mL/min (70-130); Calcium 8.1 mg/dL (7.8-10.44); Carbon Dioxide 19 mmol/L (23-31); Chloride 106 mmol/L (98-107); Glucose 143 mg/dL (80-115); Lipase 19 U/L (8-78); Potassium 3.4 mmol/L (3.5-5.1); Sodium 136 mmol/L (136-145)
[2020-10-18] MEDS ORDERED: Lidocaine 1% PF 5 ML VIAL ONE (09:57)
[2020-10-18] MEDS ORDERED: PROPOFOL 200 MG/20 ML VIAL ONE (09:57)
[2020-10-18 11:10] LABS: Hemoglobin A1c 6.8 % (4.0-6.0)
[2020-10-18] MEDS: Pantoprazole 40 MG VIAL IVP SCH (11:23)
[2020-10-18] MEDS: Atorvastatin Calcium 40 MG TAB PO SCH (11:23)
[2020-10-18] MEDS: Sodium Chloride 0.9% 1,000 ML IV SCH ×2 (11:24→22:14)
[2020-10-18 11:55] VITALS: BMI 19.8
[2020-10-18] MEDS ORDERED: Iopamidol-370 76% 500 ML 1 ML ONE (12:09)
[2020-10-18] MEDS: Metoprolol Tartrate 50 MG TAB PO SCH (20:35)
[2020-10-18] MEDS ORDERED: traMADol HCl 50 MG TAB PO PRN (21:28)
[2020-10-19 07:02] LABS: #Basophils 0.1 thou/uL (0.0-0.2); #Eosinphils 0.1 thou/uL (0.0-0.7); #Lymphocytes 3.2 thou/uL (1.20-3.40); #Monocytes 0.6 thou/uL (0.11-0.59); #Neutrophils 2.5 thou/uL (1.40-6.50); %Basophils 1.5 % (0.0-1.0); %Eosinophils 1.4 % (0.0-10.0); %Lymphocytes 49.4 % (21.0-51.0); %Monocytes 8.7 % (0.0-10.0); Hemoglobin 11.2 g/dL (12.0-16.0); Mean Corpuscular HGB CONC 32.8 g/dL (32.0-36.0); Mean Corpuscular Hemoglobin 31.1 pg (27.0-31.0); Mean Corpuscular Volume 94.8 fL (78.0-98.0); Mean Platelet Volume 9.3 fL (7.4-10.4); Platelet Count 202 thou/uL (130-400); RBC Distribution Width 12.7 % (11.5-14.5); Red Blood Cell (RBC) Count 3.61 mill/uL (4.20-5.40); White Blood Cell (WBC) Count 6.4 thou/uL (4.8-10.8)
[2020-10-19 07:25] LABS: Anion Gap 10 mmol/L (10-20); BUN (Urea Nitrogen) Less than 4 mg/dL (9.8-20.1); Calc. Creatinine Clearance 85 mL/min (70-130); Calcium 8.1 mg/dL (7.8-10.44); Carbon Dioxide 22 mmol/L (23-31); Chloride 108 mmol/L (98-107); Glucose 161 mg/dL (80-115); Potassium 4.4 mmol/L (3.5-5.1); Sodium 136 mmol/L (136-145)
[2020-10-19] MEDS: Atorvastatin Calcium 40 MG TAB PO SCH (08:53)
[2020-10-19] MEDS: Pantoprazole 40 MG VIAL IVP SCH (08:56)
[2020-10-19 11:24] VITALS: TEMP 97.8
[2020-10-19] MEDS: Metoprolol Tartrate 50 MG TAB PO SCH (11:25)
[2020-10-19] MEDS: Sodium Chloride 0.9% 1,000 ML IV SCH (13:35)
[2020-10-19 14:10] LABS: Hemoglobin A1c 6.5 % (4.0-6.0)
[2020-10-19 15:29] VITALS: BP 135/86
[2020-10-19] MEDS ORDERED: Metoclopramide HCl 10 MG TAB PO SCH (17:00)
== END 2020-10-19 16:57 | disposition home or self-care (01) | DRG 641 ==
LOC: 2NO 14:12 → T4-B 10-17 14:20
PROVIDERS: ADMIT Internal Medicine; ATTEND Internal Medicine
PROC: 0DB68ZX Excision of Stomach, Via Natural or Artificial Opening Endoscopic, Diagnostic (ICD-10-PCS; principal; 2020-10-18)
DX: E86.0 Dehydration (principal); I10 Essential (primary) hypertension; E87.1 Hypo-osmolality and hyponatremia; Z20.822 Contact with and (suspected) exposure to COVID-19; E11.9 Type 2 diabetes mellitus without complications; E78.5 Hyperlipidemia, unspecified; K59.00 Constipation, unspecified; E87.6 Hypokalemia; D64.9 Anemia, unspecified; Z79.84 Long term (current) use of oral hypoglycemic drugs; Z79.899 Other long term (current) drug therapy
CPT/HCPCS: 36415; 36416; 74174; 80048; 80053; 83036; 83690; 83735; 84443; 85025; 87635; 88305; 88312; 93005; 93010; C9113; J2704; J3475; Q9967; U0003; U0005